=== PATIENT | male | born 1960 | race African-American/Black ===

== ENCOUNTER 2022-04-25 15:07 | Emergency (ER) | payer OTHER, MEDICAID ==
[~2022-04-25] VITALS: Ht 157.5 cm; Wt 106.1 kg
[2022-04-25 15:07] VITALS: BP_SYST 184
--- NOTE | 2022-04-25 15:07 | NUR ---
BROUGHT IN BY [facility], TRIAGED AND AWAITING ER BED AVAILABILITY
--- NOTE | 2022-04-25 16:05 | NUR ---
Placed in room 03 . Placed on transformation analyst, blood pressure machine and pulse oximeter. To gown for exam. Side rails up. Report given to MIKAYLA MANCERA.
--- NOTE | 2022-04-25 16:10 | NUR ---
PT BIBA ACLS FOR C/O BLE INCREASING EDEMA AND RIGHT ARM NEW ONSET EDEMA. PT IS S/P STROKE AND RECENTLY DISCHARGE FROM HOSPITAL/SNF. PT IS AAOX4, WITH MILD RIGHT SIDE WEAKNESS. RIGHT ARM NOTED WITH NONPITTING EDEMA, BLE 2+ EDEMA. RESP E/U, LUNG SOUNDS DIMINISHED. DENIES N/V/D/C. DISTAL PULSES NORMAL, SKIN WARM. DENIES PAIN SIDERAILS UP X2.
--- NOTE | 2022-04-25 16:53 | NUR ---
# 22 gauge angiocath placed to LEFT HAND. Use of asceptic technique. Opsite placed over site. Flushed with 10 cc of normal saline. No evidence of infiltration noted. Patient tolerated well.
[2022-04-25] MEDS ORDERED: HYDR25TA4 PO (17:50)
[2022-04-25] MEDS ORDERED: LIP40 PO (17:50)
[2022-04-25] MEDS ORDERED: HYDR-4038 PO (17:50)
[2022-04-25] MEDS ORDERED: FOLI-43 PO (17:50)
[2022-04-25] MEDS ORDERED: CARV25TA55 PO (17:50)
--- NOTE | 2022-04-25 18:22 | NUR ---
DR. MITCHELL AT BEDSIDE TO ASSESS PT.
[2022-04-25] MEDS ORDERED: MORPHINE 4 MG INJ. 4 MG/ML VIAL IVP ONE (18:30)
--- NOTE | 2022-04-25 18:49 | NUR ---
MORPHINE 4MG IVP GIVEN FOR RIGHT ARM PAIN AND BLE PAIN 08/27.
[2022-04-25 18:55] LABS: BASOPHILS # (AUTO) 0.1 K/uL (0.0-0.2); BASOPHILS % (AUTO) 0.6 % (0.0-2.0); EOSINOPHILS # (AUTO) 0.2 K/uL (0.0-0.4); EOSINOPHILS % (AUTO) 1.2 % (0.0-4.0); HEMATOCRIT 37.4 % (36-54); HEMOGLOBIN 12.8 g/dL (14.0-18.0); MEAN CORPUSCULAR HEMOGLOBIN 33 pg (27-31); MEAN CORPUSCULAR HGB CONC 34 % (32-36); MEAN CORPUSCULAR VOLUME 95 fL (79.0-98.0); MONOCYTES # (AUTO) 1.2 K/uL (0.0-1.0); MONOCYTES % (AUTO) 9.2 % (1.7-9.3); NEUTROPHILS # (AUTO) 9.1 K/uL (1.8-7.7); PLATELET COUNT (AUTO) 260 K/uL (130-430); RED BLOOD CELL COUNT(AUTO) 3.94 MIL/uL (4.2-6.2); RED CELL DISTRIBUTION WIDTH 12.4 % (9.0-15.0); WHITE BLOOD COUNT (AUTO) 12.5 K/uL (4.8-10.8)
--- NOTE | 2022-04-25 19:24 | NUR ---
ENDORSED PT TO NIRAV DEGROOT. ALL QUESTIONS AND CONCERNS ADDRESSED.
[2022-04-25 19:31] LABS: ALBUMIN 2.9 g/dL (3.4-4.8); CALCIUM 9.3 mg/dL (8.4-11.0); CREATININE 1.86 mg/dL (0.55-1.30); TOTAL BILIRUBIN 0.9 mg/dL (0.0-1.0)
--- NOTE | 2022-04-25 19:45 | NUR ---
PT AA&OX4. AFEBRILE. NAD. SAFE & HAZARD FREE ENVIRONMENT PROVIDED.
[2022-04-25] MEDS ORDERED: DOCU250C14 PO (20:27)
[2022-04-25] MEDS ORDERED: HYDR-3917 PO (20:27)
[2022-04-25] MEDS ORDERED: ONDA-8 TL (20:27)
[2022-04-25] MEDS ORDERED: COLC0.6T67 PO (20:31)
[2022-04-25 21:40] VITALS: BP_SYST 134
--- NOTE | 2022-04-25 21:40 | NUR ---
Patient given written and verbal discharge instructions and verbalizes understanding. ER MD discussed with patient the results and treatment provided. Patient in stable condition. ID arm band removed. IV catheter removed intact and dressing applied, no active bleeding.PICKED UP BY SRIRAM, NEIGHBOR ARRANGED BY PT'S SPOUSE GABE. Rx of COLCHICINE, COLACE, NORCO & ZOFRAN given. Patient educated on pain management and to follow up with PMD. Pain Scale 0/10. Opportunity for questions provided and answered. Medication side effect fact sheet provided.
== END 2022-04-25 21:40 | disposition home or self-care (01) ==
LOC: SED 15:07
DX: M25.531 Pain in right wrist (principal); M25.562 Pain in left knee; M25.561 Pain in right knee; N18.9 Chronic kidney disease, unspecified; Z79.899 Other long term (current) drug therapy
CPT/HCPCS: 99283; 80053; 85025; 36415; 96372; J2270

== ENCOUNTER 2022-09-03 08:22 | Emergency (ER) | payer OTHER, MEDICAID ==
[~2022-09-03] VITALS: Ht 162.6 cm; Wt 109.8 kg
[2022-09-03 08:22] VITALS: BP_SYST 134; PULSE 76; RESP 19; TEMP 97.3; O2SAT 95
[~2022-09-03 08:22] MED LIST: CARV25TA55 PO; COLC0.6T67 PO; DOCU250C14 PO; FOLI-43 PO; HYDR-3917 PO; HYDR-4038 PO; HYDR25TA4 PO; LIP40 PO; ONDA-8 TL
--- NOTE | 2022-09-03 08:22 | NUR ---
BROUGHT BACK TO BED #7 AND TRIAGED. REPORT GIVEN TO BOBBY
--- NOTE | 2022-09-03 08:25 | NUR ---
Patient to Radiology
--- NOTE | 2022-09-03 08:26 | NUR ---
Dr. Curtis at bedside.
[2022-09-03] MEDS ORDERED: NACL 0.9% 1,000 ML IV ONE (08:30)
[2022-09-03] MEDS ORDERED: ALBUTEROL SULFATE 0.083% 2.5 MG/3 ML VIAL.NEB INH ONE (08:30)
--- NOTE | 2022-09-03 08:35 | NUR ---
Phlebotomy at bedside drawing labs
--- NOTE | 2022-09-03 08:45 | NUR ---
ABGs being obtained
--- NOTE | 2022-09-03 08:50 | NUR ---
Patient BIB self c/o SOB following cold symptoms x 11 days with wheezes present. O2 sat 95% on 2 lpm. Patient is able to seak in full sentences. Med Hx CVA. No Sx Hx. NKA. VSS.
[2022-09-03 08:56] LABS: BASOPHILS # (AUTO) 0.1 K/uL (0.0-0.2); BASOPHILS % (AUTO) 0.9 % (0.0-2.0); EOSINOPHILS % (AUTO) 0.8 % (0.0-4.0); HEMATOCRIT 39.5 % (36-54); HEMOGLOBIN 13.7 g/dL (14.0-18.0); LYMPHOCYTES # (AUTO) 1.9 K/uL (1.0-5.5); MEAN CORPUSCULAR HEMOGLOBIN 33 pg (27-31); MEAN CORPUSCULAR HGB CONC 35 % (32-36); MEAN CORPUSCULAR VOLUME 95 fL (79.0-98.0); MONOCYTES # (AUTO) 0.8 K/uL (0.0-1.0); MONOCYTES % (AUTO) 13.7 % (1.7-9.3); NEUTROPHILS % (AUTO) 51.6 % (40.0-70.0); PLATELET COUNT (AUTO) 140 K/uL (130-430); RED BLOOD CELL COUNT(AUTO) 4.17 MIL/uL (4.2-6.2); RED CELL DISTRIBUTION WIDTH 12.8 % (9.0-15.0); WHITE BLOOD COUNT (AUTO) 5.8 K/uL (4.8-10.8)
[2022-09-03] MEDS ORDERED: cefTRIAXone 1 GM IVPB PREMIX 50 ML IV ONE (09:15)
[2022-09-03] MEDS ORDERED: AZITHROMYCIN 500 MG in NS 250 ML IV ONE (09:15)
--- NOTE | 2022-09-03 09:15 | NUR ---
# 20 gauge angiocath placed to LFA. Use of asceptic technique. Opsite placed over site. Blood return noted. Flushed with 10 cc of normal saline. No evidence of infiltration noted. Patient tolerated well.
[2022-09-03 09:17] LABS: ALBUMIN 3.2 g/dL (3.4-4.8); CALCIUM 8.1 mg/dL (8.4-11.0); CREATININE 2.47 mg/dL (0.55-1.30); TOTAL BILIRUBIN 0.8 mg/dL (0.0-1.0)
[2022-09-03] MEDS ORDERED: KCL 20 mEq in 100 mL (PREMIX) 100 ML IV ONE (09:30)
[2022-09-03] MEDS ORDERED: AZITHROMYCIN 500 MG/VIAL (ZITHROMAX) IV ONE (09:33)
[2022-09-03] MEDS ORDERED: ALBMDI INH (11:10)
[2022-09-03] MEDS ORDERED: LEVO750T64 PO (11:10)
[2022-09-03] MEDS ORDERED: AUG875 PO (11:10)
[2022-09-03 11:15] VITALS: BP_SYST 118; PULSE 78; RESP 19; TEMP 97.9; O2SAT 94
--- NOTE | 2022-09-03 11:15 | NUR ---
Patient given written and verbal discharge instructions and verbalizes understanding. ER MD ANDERSON discussed with patient the results and treatment provided. Patient in stable condition. ID arm band removed. IV catheter removed intact and dressing applied, no active bleeding. Rx of AUGMENTIN, LEVAQUIN, ALBUTEROL given. Patient educated on pain management and to follow up with PMD. Pain Scale 0/10. Opportunity for questions provided and answered. Medication side effect fact sheet provided.
== END 2022-09-03 11:15 | disposition home or self-care (01) ==
LOC: SED 08:22
DX: J20.9 Acute bronchitis, unspecified (principal); R06.02 Shortness of breath; I10 Essential (primary) hypertension; Z79.899 Other long term (current) drug therapy
CPT/HCPCS: 80053; 85025; 87040; 36415; 71045; 94640; 36600; 82803; 99285; 96365; 96367; 83605; J0456; J0696; J7613; J7030